=== PATIENT | male | born 1975 | race Caucasian/White ===

== ENCOUNTER 2022-11-29 11:03 | Emergency (ER) | payer BC, SELFPAY ==
--- NOTE | ~2022-11-29 | CT_ITS ---
EXAMINATION: CT abdomen pelvis wo con DATE: 11/29/2022 13:44 INDICATION: Left flank pain TECHNIQUE: Computed tomography (CT) of the abdomen and pelvis was performed without intravenous contr ast. The dose-length product (DLP) was 255.49 mGy-cm. Automated exposure control and iterative recons truction technique were employed. COMPARISON: None FINDINGS: Minimal dependent atelectasis is present in the lung bases. The heart size is normal. Nodul es of the left lower lobe measure up to 5 mm. Punctate calcifications in an otherwise normal spleen l ikely represent healed granulomatous disease. The liver, pancreas, gallbladder, and adrenal glands ar e normal. The right kidney is unremarkable. There is mild left hydronephrosis. No definite obstructin g stone is identified. Nonobstructing stones of the left kidney measure up to 3 mm. No pathologically enlarged abdominal or pelvic lymph nodes are identified. No free intraperitoneal gas or evidence of bowel obstruction. A moderate volume of colonic stool is present. The appendix is normal. There is mo derate lumbar spondylosis. There is a fat-containing umbilical hernia. Also noted is a left lumbar he rnia containing a short segment of nonobstructed colon and part of the left kidney. IMPRESSION: 1. Mild left hydronephrosis of unclear etiology. Finding could reflect recent passage of stone. Reviewed, dictated and finalized at location L. IMPRESSION: 1. Mild left hydronephrosis of unclear etiology. Finding could reflect recent p assage of stone.
[2022-11-29 11:17] VITALS: BP 149/91; PULSE 83; RESP 16; TEMP 36.9; O2SAT 98
[2022-11-29 11:34] LABS: Basophils Absolute Auto 0.1 K/mm3 (0.0-0.1); Basophils Percent Auto 0.9 % (0.2-1.2); Eosinophils Absolute Auto 0.1 K/mm3 (0-0.3); Eosinophils Percent Auto 1.4 % (0-4.4); Hematocrit 45.2 % (37.0-47.0); Hemoglobin 14.9 g/dL (12.0-15.0); Immature Granulocyte Absolute 0.03 K/mm3 (0.00-0.031); Immature Granulocyte Percent A 0.4 % (0-0.5); Lymphocytes Absolute Auto 1.63 K/mm3 (0.9-3.2); Lymphocytes Percent Auto 20.6 % (18.3-44.2); Mean Corpuscular Hemoglobin 30.6 pg (26-34); Mean Corpuscular Volume 92.8 fl (80-100); Mean Platelet Volume 9.1 fl (7.4-10.4); Monocytes Absolute Auto 0.7 K/mm3 (0.1-0.6); Monocytes Percent Auto 8.6 % (2.6-8.5); Neutrophils Absolute Auto 5.4 K/mm3 (1.3-6.7); Neutrophils Percent Auto 68.1 % (45.5-73.1); Platelet Count Result 299 k/mm3 (150-375); Red Blood Count 4.87 M/mm3 (4.2-5.4); White Blood Count 7.9 K/mm3 (4.5-10.0)
[2022-11-29 11:44] LABS: Alanine Aminotransferase 26 U/L (6-35); Albumin Level 4.6 g/dL (3.5-5.1); Alkaline Phosphatase 58 U/L (38-126); Anion Gap 6 mmol/L (8-16); Aspartate Amino Transferase 20 U/L (14-36); Bilirubin,Total 0.5 mg/dL (0.2-1.3); Blood Urea Nitrogen 14 mg/dL (7-17); Calcium 9.4 mg/dL (8.4-10.2); Carbon Dioxide 31 mmol/L (22-30); Chloride 101 mmol/L (98-107); Estimated CRCL calculation 83 ml/min; Estimated Glomerular Filt Rate > 60; Glucose 98 mg/dL (65-110); Potassium 4.3 mmol/L (3.4-5.0); Sodium 138 mmol/L (137-145)
[2022-11-29 13:10] LABS: Appearance Urine Cloudy (Clear); Bacteria Urine None Seen /hpf; Bilirubin Urine Negative (Negative); Blood Urine Negative (Negative); Color Urine Yellow (Yellow); Glucose Urine UA Negative (Negative); Ketones Urine Negative (Negative); Leukocyte Esterase Ur Negative LEU/UL (Negative); Nitrate Urine Negative (Negative); Non Pathogenic Casts 0-2; Protein Urine Negative (Negative); RBC Urine 0-2 /hpf (0-2); Specific Grav Ur 1.016 (1.001-1.035); Squamous Epithelial Cell Urine None seen /hpf (Few); Urobilinogen Urine 0.2 mg/dL (<2.0); WBC Urine 0-5 /hpf; pH Urine 7.5 (5.0-9.0)
[2022-11-29 13:19] LABS: Add Urine Microscopic? YES
--- NOTE | 2022-11-29 13:31 | ED.MALEGU ---
HPI - Male Genitourinary General Chief complaint: Urogenital-Male Stated complaint: kidney stones Time Seen by Provider: 11/29/22 12:41 History of Present Illness HPI Narrative: Patient is a 47-year-old male with a history of kidney stones, hypertension presenting with flank pain. Patient states that for the last 8 hours he has had severe left flank pain that radiates into his left groin. States it feels similarly to prior kidney stones. States that he has required multiple procedures in the past for stones. States that he took naproxen and Tylenol this morning with minimal relief. He denies significant nausea. No vomiting. No changes in bowel movements. No fevers or chills. No dysuria or hematuria. Denies further complaints. Related Data Allergies Allergy/AdvReac Type Severity Reaction Status Date / Time NKDA Allergy Mild Uncoded 05/08/09 16:50 Review of Systems Review of Systems: All systems reviewed & are unremarkable except as noted in HPI and below Exam Narrative: GENERAL: Well-appearing, well-nourished, and in no acute distress. HEAD: Normocephalic, atraumatic. EYES: PERRLA and EOMI. ENT: Nares clear, no rhinorrhea or epistaxis. Mucous membranes moist. NECK: Supple. CHEST: Clear to auscultation. No respiratory distress. HEART: Regular rate and rhythm ABDOMEN: Soft, nontender, nondistended, + left CVA tenderness EXTREMITIES: Normal range of motion. No edema. SKIN: Warm, dry, no rash. NEURO: No focal deficits. Alert and oriented x3. PSYCH: Normal mood and affect. Course Vital Signs Vital signs: Vital Signs Temperature 98.5 F 11/29/22 11:17 Pulse Rate 83 11/29/22 11:17 Respiratory Rate 16 11/29/22 11:17 Blood Pressure 149/91 H 11/29/22 11:17 Pulse Oximetry 98 11/29/22 11:17 Oxygen Delivery Room Air 11/29/22 11:17 Temperature 98.5 F 11/29/22 11:17 Pulse Rate 83 11/29/22 11:17 Respiratory Rate 16 11/29/22 11:17 Blood Pressure 149/91 H 11/29/22 11:17 Pulse Oximetry 98 11/29/22 11:17 Oxygen Delivery Room Air 11/29/22 11:17 MDM - Male Genitourinary MDM Narrative Medical decision making narrative: Patient is a 47-year-old male presenting with left flank pain. Patient is a bit hypertensive, otherwise vitals are within normal limits. Exam is remarkable for the above. Blood work is unremarkable. Plan for CT abdomen pelvis, fluids, pain control. Blood work is unremarkable. CT abdomen pelvis shows mild left-sided hydronephrosis that could be related to a recently passed stone. There are no other acute abnormalities. On reevaluation, the patient is resting comfortably. States that his pain has improved. Discussed the reassuring work-up. Advised that he follow-up with primary care as well as urology. Appropriate return precautions given. Patient voiced understanding and is agreeable with plan. Discharged in stable condition Differential Diagnosis Differential diagnosis: Likely urinary tract infection, urethritis and other (kidney stones, diverticulitis) Lab Data 11/29/22 11:25 11/29/22 11:25 Labs: Lab Results 11/29/22 11/29/22 Range/Units 11:25 12:39 WBC 7.9 (4.5-10.0) K/mm3 RBC 4.87 (4.2-5.4) M/mm3 Hgb 14.9 (12.0-15.0) g/dL Hct 45.2 (37.0-47.0) % MCV 92.8 (80-100) fl MCH 30.6 (26-34) pg MCHC 33.0 (32-36) g/dl RDW 13.0 (11.5-14.5) % Plt Count 299 (150-375) k/mm3 MPV 9.1 (7.4-10.4) fl Immature Gran % (Auto) 0.4 (0-0.5) % Neut % (Auto) 68.1 (45.5-73.1) % Lymph % (Auto) 20.6 (18.3-44.2) % [place] % (Auto) 8.6 H (2.6-8.5) % Eos % (Auto) 1.4 (0-4.4) % Baso % (Auto) 0.9 (0.2-1.2) % Lymph # (Auto) 1.63 (0.9-3.2) K/mm3 [place] # (Auto) 0.7 H (0.1-0.6) K/mm3 Eos # (Auto) 0.1 (0-0.3) K/mm3 Baso # (Auto) 0.1 (0.0-0.1) K/mm3 Abs Immat Gran (auto) 0.03 (0.00-0.031) K/mm3 Absolute Neuts (auto) 5.4 (1.3-6.7) K/mm3 Absolute Nucleated RBC 0.0
[2022-11-29] MEDS: HYDROmorphone HCL INJ (*CRX) 1 MG/ML SYR IV PUSH (13:53)
[2022-11-29] MEDS: SODIUM CHLORIDE 0.9% IV 1,000 ML 999 ML IV CONT (13:53)
== END 2022-11-29 15:59 | disposition home or self-care (01) ==
PROVIDERS: Emergency Medicine; Emergency Provider Emergency Medicine; PCP Physician Assistant
DX: R10.9 Unspecified abdominal pain (principal); N13.30 Unspecified hydronephrosis
CPT/HCPCS: 36415; 74176; 80053; 81001; 85025; 96365; 96375; 99284; J0131; J1170; J7030